=== PATIENT | female | born 1985 | race Caucasian/White ===

== ENCOUNTER 2024-10-20 14:49 | Emergency (ER) | payer SELFPAY ==
[2024-10-20] MEDS ORDERED: Sodium Chloride 0.9% 10 ML Syringe FLUSH PRN (15:52)
[2024-10-20] MEDS: Lactated Ringers 1,000 ML IV ONE (16:00)
[2024-10-20 16:07] LABS: BASOPHILS ABSOLUTE AUTO 0.0 x10^3/uL (0.0-0.2); BASOPHILS PERCENT AUTO 0.4 % (0.2-1.2); EOSINOPHILS ABSOLUTE AUTO 0.2 x10^3/uL (0.0-0.5); EOSINOPHILS PERCENT AUTO 2.3 % (0.0-4.0); IMMATURE GRAN ABSOLUTE AUTO 0.01 x10^3/uL (0.00-0.07); IMMATURE GRAN PERCENT AUTO 0.10 % (0.00-0.43); LYMPHOCYTES ABSOLUTE AUTO 2.8 x10^3/uL (1.0-4.8); LYMPHOCYTES PERCENT AUTO 29.2 % (25.0-50.0); MONOCYTES ABSOLUTE AUTO 0.8 x10^3/uL (0.0-0.8); MONOCYTES PERCENT AUTO 8.8 % (2.0-11.0); NEUTROPHILS ABSOLUTE AUTO 5.6 x10^3/uL (1.8-7.7); NEUTROPHILS PERCENT AUTO 59.2 % (50.0-80.0); PLATELET COUNT,PLT 313 x10^3/uL (130-400); RED BLOOD CELL COUNT 4.36 x10^6/uL (4.00-5.50); WHITE BLOOD CELL COUNT,WBC 9.5 x10^3/uL (4.0-10.0)
[2024-10-20] MEDS: Ondansetron 4 MG/2 ML SDV IVPUSH ONE (16:19)
[2024-10-20] MEDS: fentaNYL 100 MCG/2 ML SDV IVPUSH ONE (16:19)
[2024-10-20] MEDS: Ketorolac 30 MG/ML SDV IVPUSH ONE (16:19)
[2024-10-20 16:24] LABS: A/G RATIO 1.00; ALANINE AMINOTRANSFERASE,ALT 13 U/L (14-59); ASPARTATE AMNIOTRANSFERASE,AST 12 U/L (15-37); BILIRUBIN TOTAL 0.6 mg/dL (0.2-1.0); BLOOD UREA NITROGEN,BUN 10 mg/dL (7-18); CARBON DIOXIDE,CO2 25 mmol/L (21-32); CHLORIDE,CL 103 mmol/L (98-107); CREATININE 0.8 mg/dL (0.55-1.02); GLUCOSE RANDOM 97 mg/dL (70-99); POTASSIUM,K 4.1 mmol/L (3.5-5.1); PROTEIN TOTAL,TP 8.0 g/dL (6.4-8.2); SODIUM,NA 138 mmol/L (136-145)
[2024-10-20 16:25] LABS: ESTIMATED GFR 95 mL/min (>=60)
[2024-10-20 16:27] LABS: LACTIC ACID 1.3 mmol/L (0.4-2.0)
[2024-10-20] MEDS: Iopamidol 612 MG/ML 100 ML Bottle IVPUSH ONE (17:14)
[2024-10-20 17:16] LABS: APPEARANCE,URINE SLIGHTLY CLOUDY (CLEAR); GLUCOSE,URINE NEGATIVE (NEGATIVE); OCCULT BLOOD,URINE NEGATIVE (NEGATIVE)
[2024-10-20 17:40] LABS: EPITHELIAL CELLS,URINE FEW
[2024-10-20] MEDS: Prochlorperazine 10 MG/2 ML SDV IV ONE (18:41)
== END 2024-10-20 20:14 | disposition home or self-care (01) ==
LOC: VM.ED 14:49
DX: R10.11 Right upper quadrant pain (principal); Z88.0 Allergy status to penicillin
CPT/HCPCS: 36415; 74177; 80053; 81001; 81025; 82150; 83605; 83690; 83735; 85025; 96361; 96374; 96375; 99284; 99284-25; J0780; J1171; J1885; J2405; J3010; J7120; Q9967